=== PATIENT | male | born 1965 | race Caucasian/White ===

== ENCOUNTER 2017-02-03 15:54 | Observation (INO) | payer BC ==
[2017-02-03] VITALS (7 sets, daily range): BP systolic 115–167; BP diastolic 55–88; PULSE 58–79; RESP 15–18; TEMP 98.6; O2SAT 96–99
[~2017-02-03] VITALS: Ht 170.2 cm; Wt 97.0 kg
[~2017-02-03 15:54] MED LIST: LISI-357 PO; MECL25CH PO
--- NOTE | 2017-02-03 16:06 | PD ---
Physical Exam Date Seen by Provider: Feb 03, 2017 Time Seen by Provider: 16:05 Narrative 51 yr old male with HTN here with c/o chest pain for several weeks. He saw PCP on Monday and was referred to cardiology for stress test. However, pain continues and patient here for evaluation. He admits to nausea, vomiting and heartburn. Denies any diaphoresis. He is awaiting bed placement. Data Data Last Documented VS Vital Signs Date Time Temp Pulse Resp B/P (MAP) Pulse Ox O2 Delivery O2 Flow Rate FiO2 02/03/17 15:58 98.6 79 18 167/88 (114) 96 Room Air Orders [facility] Medical Record Reviewed: Yes Supervised Visit with VINNY: No Condition: Stable Radha Zamora Feb 03, 2017 16:06
--- NOTE | 2017-02-03 16:32 | RADRPT ---
EXAM DATE/TIME: 02/03/2017 16:33 [facility] COMPARISON: No previous studies available for comparison. INDICATIONS : Chest pain. MEDICAL HISTORY : None. SURGICAL HISTORY : None. ENCOUNTER: Initial ACUITY: 1 month PAIN SCORE: 6/10 LOCATION: chest FINDINGS: PA and lateral views of the chest demonstrate the lungs to be symmetrically aerated without evidence of mass, infiltrate or effusion. The cardiomediastinal contours are unremarkable. Osseous structure s are intact. CONCLUSION: No acute disease. Archie Norman MD FACR on February 03, 2017 at 16:31 Board Certified Radiologist. This report was verified electronically.
[2017-02-03] MEDS ORDERED: LISI-519 PO (17:14)
[2017-02-03] MEDS ORDERED: MONT10TA4 PO (17:14)
[2017-02-03] MEDS ORDERED: SODIUM CHLOR 0.9% 1000 ML INJ 1,000 ML IV SCH (17:37)
[2017-02-03] MEDS ORDERED: ONDANSETRON HCL 4 MG/2 ML VIAL IVP ONE (17:45)
--- NOTE | 2017-02-03 18:06 | PD ---
HPI Chief Complaint: Chest Pain Time Seen by Provider: 17:10 Travel History International Travel<30 days: No Contact w/Intl Traveler<30days: No Traveled to known affect area: No History of Present Illness HPI 51-year-old male that presents to the ED for evaluation of chest pain on and off for the past month as well as nausea and vomiting and some back pain. Per patient she's had this on and off for the past month. Per patient she's follow with his doctor and he recommended follow with public address system operator. He actually has an appointment on the 14 of this month but today she developed more nausea as well as vomiting as well as a chest pain and weakness and he states that he couldn't wait so he came here. Patient apparently had blood work done by his PCP earlier this week and was normal. He denies any other medical issues. He denies any surgeries. He does have a history of high blood pressure. He has a family history of heart disease and an old history of smoking having quit in July. He has an allergy to penicillin. No other medical issues. Per patient he gets very short of breath when he ambulates. He gets weak as well. States feeling dizzy. He states that the discomfort in the chest is not constant and it comes and goes and is sharp. Per patient he last for possibly a couple of seconds and goes away. She denies any diarrhea. No lower abdominal pain. PFSH Past Medical History Depression: Yes Heart Rhythm Problems: No Cardiac Catheterization: No Cardiovascular Problems: No High Cholesterol: No Congestive Heart Failure: No Cerebrovascular Accident: Yes (HTN) Diabetes: No Heparin Induced Thrombocytopen: No Hypertension: Yes Myocardial Infarction: No Past Surgical History Coronary Artery Bypass Graft: No Family History Family Myocardial Infarction: No Social History Alcohol Use: No Tobacco Use: Yes (1pack/day) Substance Use: No Allergies-Medications (Allergen,Severity, Reaction): Coded Allergies: penicillin G (Unverified Allergy, Severe, UNKNOWN REACTION, 02/03/17) Reported Meds & Prescriptions Reported Meds & Active Scripts Active Reported Montelukast (Montelukast Sodium) 10 Mg Tab 10 Mg PO HS Lisinopril 5 Mg Tab 5 Mg PO DAILY Review of Systems Except as stated in HPI: all other systems reviewed are Neg Physical Exam Narrative GENERAL: SKIN: Warm and dry. HEAD: Atraumatic. Normocephalic. EYES: Pupils equal and round. No scleral icterus. No injection or drainage. ENT: No nasal bleeding or discharge. Mucous membranes pink and moist. Tongue is midline. No uvula deviation. NECK: Trachea midline. No JVD. CARDIOVASCULAR: Regular rate and rhythm. No murmurs, S3, S4. RESPIRATORY: No accessory muscle use. Clear to auscultation. Breath sounds equal bilaterally. GASTROINTESTINAL: Abdomen soft, non-tender, nondistended. Hepatic and splenic margins not palpable. MUSCULOSKELETAL: Extremities without clubbing, cyanosis, or edema. No obvious deformities. Full range of motion of the upper and lower extremities bilaterally. 2+ pulses bilaterally. NEUROLOGICAL: Awake and alert. No obvious cranial nerve deficits. Motor grossly within normal limits. Five out of 5 muscle strength in the arms and legs. Normal speech. PSYCHIATRIC: Appropriate mood and affect; insight and judgment normal. Data Data Last Documented VS Vital Signs Date Time Temp Pulse Resp B/P (MAP) Pulse Ox O2 Delivery O2 Flow Rate FiO2 02/03/17 21:00 62 18 120/59 (79) 99 Room Air 02/03/17 15:58 98.6 Orders Orders Electrocardiogram (02/03/17 16:06) Basic Metabolic Panel (Bmp) (02/03/17 16:06) Ckmb (Isoenzyme) Profile (02/03/17 16:06) Complete Blood Count With Diff (02/03/17 16:06) Magnesium (Mg) (02/03/17 16:06) Prothrombin Time / Inr (Pt) (02/03/17 16:06) Act Partial Throm Time (Ptt) (02/03/17 16:06) Troponin I (02/03/17 16:06) Chest, Pa & Lat (02/03/17 16:06) Ondansetron Inj (Zofran Inj) (02/03/17 17:45) Sodium Chlor 0.9% 1000 Ml Inj (Ns 1000 M (02/03/17 17:37) Hepatic Functional Panel (02/03/17 18:00) Lipase (02/03/17 18:00) Pantoprazole Inj (Protonix Inj) (02/03/17 20:15) Famotidine Inj (Pepcid Inj) (02/03/17 20:15) CKMB (02/03/17 18:00) CKMB% (02/03/17 18:00) Us Abdomen Gallbladder (02/03/17 ) Activity Bed Rest With Brp (02/03/17 20:35) Vital Signs (Adult) Q4H (02/03/17 20:35) Cardiac Rhythm .As Directed (02/03/17 20:35) Notify Dr: Other .PRN (02/03/17 20:35) Notify Dr. Parameters (02/03/17 20:35) Resp Oxygen Nasal Cannula (02/03/17 ) Ckmb (Isoenzyme) Profile (02/03/17 21:00) Ckmb (Isoenzyme) Profile (02/04/17 00:00) Troponin I (02/03/17 21:00) Troponin I (02/04/17 00:00) Electrocardiogram (02/03/17 21:00) Electrocardiogram (02/04/17 00:00) ^ Obtain (02/03/17 20:35) Sodium Chloride 0.9% Flush (Ns Flush) (02/03/17 20:45) Sodium Chloride 0.9% Flush (Ns Flush) (02/03/17 21:00) Ondansetron Inj (Zofran Inj) (02/03/17 20:45) Famotidine (Pepcid) (02/03/17 21:00) Temp Recruiter / Telemetry JARROD.Q8H (02/03/17 20:35) CKMB (02/03/17 21:15) CKMB% (02/03/17 21:15) Admit Order (Ed Use Only) (02/03/17 22:08) Labs Laboratory Tests Test 02/03/17 18:00 02/03/17 21:15 White Blood Count 10.0 TH/MM3 Red Blood Count 4.72 MIL/MM3 Hemoglobin 14.9 GM/DL Hematocrit 42.0 % Mean Corpuscular Volume 89.0 FL Mean Corpuscular Hemoglobin 31.6 PG Mean Corpuscular Hemoglobin Concent 35.6 % Red Cell Distribution Width 12.6 % Platelet Count 310 TH/MM3 Mean Platelet Volume 9.3 FL Neutrophils (%) (Auto) 56.8 % Lymphocytes (%) (Auto) 29.7 % Monocytes (%) (Auto) 10.5 % Eosinophils (%) (Auto) 2.4 % Basophils (%) (Auto) 0.6 % Neutrophils # (Auto) 5.7 TH/MM3 Lymphocytes # (Auto) 3.0 TH/MM3 Monocytes # (Auto) 1.1 TH/MM3 Eosinophils # (Auto) 0.2 TH/MM3 Basophils # (Auto) 0.1 TH/MM3 CBC Comment DIFF FINAL Differential Comment Prothrombin Time 10.3 SEC Prothromb Time International Ratio 0.9 RATIO Activated Partial Thromboplast Time 31.7 SEC Blood Urea Nitrogen 16 MG/DL Creatinine 1.20 MG/DL Random Glucose 91 MG/DL Total Protein 8.3 GM/DL Albumin 4.1 GM/DL Calcium Level 8.6 MG/DL Magnesium Level 2.1 MG/DL Alkaline Phosphatase 122 U/L Aspartate Amino Transf (AST/SGOT) 38 U/L Alanine Aminotransferase (ALT/SGPT) 47 U/L Total Bilirubin 0.7 MG/DL Direct Bilirubin 0.1 MG/DL Sodium Level 134 MEQ/L Potassium Level 4.0 MEQ/L Chloride Level 99 MEQ/L Carbon Dioxide Level 28.0 MEQ/L Anion Gap 7 MEQ/L Estimat Glomerular Filtration Rate 64 ML/MIN Indirect Bilirubin 0.6 MG/DL Total Creatine Kinase 319 U/L 253 U/L Creatine Kinase MB 2.7 NG/ML Creatine Kinase MB % 0.8 % Troponin I LESS THAN 0.02 NG/ML LESS THAN 0.02 NG/ML Lipase 130 U/L MDM Medical Decision Making Medical Screen Exam Complete: Yes Emergency Medical Condition: Yes Medical Record Reviewed: Yes Interpretation(s) EKG shows sinus rhythm with no sign of acute ischemia or arrhythmia. Read by me and attending. Last Impressions Chest X-Ray 02/03/17 1606 Signed Impressions: Service Date/Time: Friday, February 03, 2017 16:33 - CONCLUSION: No acute disease. Archie Norman MD FACR CBC & BMP Diagram 02/03/17 18:00 Total Protein 8.3 H, Albumin 4.1, Calcium Level 8.6, Magnesium Level 2.1, Alkaline Phosphatase 122 H, Aspartate Amino Transf (AST/SGOT) 38 H, Alanine Aminotransferase (ALT/SGPT) 47, Total Bilirubin 0.7, Direct Bilirubin 0.1 troponin negative. CKMB negative lipase WNL US negative for acute disease Differential Diagnosis Chest pain versus a typical chest pain versus pancreatitis versus gallbladder disease versus ACS versus normal exam Narrative Course 51-year-old male that presents to the ED for evaluation of chest discomfort. Patient was properly examined and was found to have signs and symptoms consistent with appears to be chest discomfort. Labs and imaging ordered. Initial EKG did not show any sign of ST elevation. At this time patient will be given aspirin, fluids and Zofran. Patient is is symptomatic with no chest pain other than feeling "weak". Labs and imaging will be done. Labs and imaging showed slightly elevated LFTs. This discussed my attending who recommends a do ultrasound to make sure there is no sign of other this is causing the discomfort. Ultrasound was negative for acute disease. Patient was reassured. At this time I believe that the patient will benefit from having further evaluation for possible cardiac complaint. Patient agrees with admission for the chest pain center for likely stress test. Patient does have risk factors including age, being a male, or history of smoking and hypertension. Patient agrees with admission. Patient was admitted to chest pain center. My attending Dr. Silverio was made aware of all findings and agrees with plan. Diagnosis Primary Impression: Chest pain in adult Admitting Information Admitting Physician Requests: Efren Miller Feb 03, 2017 18:06
[2017-02-03 19:29] LABS: AUTOMATED NEUTROPHIL # 5.7 TH/MM3 (1.8-7.7); BASOPHIL # 0.1 TH/MM3 (0-0.2); BASOPHIL % 0.6 % (0.0-2.0); EOSINOPHIL # 0.2 TH/MM3 (0-0.4); EOSINOPHIL % 2.4 % (0.0-4.0); HEMO FLAGS DIFF FINAL; LYMPH % 29.7 % (9.0-44.0); MEAN CORPUSCULAR HEMOGLOBIN 31.6 PG (27.0-34.0); MEAN CORPUSCULAR HGB CONC 35.6 % (32.0-36.0); MONO % 10.5 % (0.0-8.0); NEUT % 56.8 % (16.0-70.0); PLATELET COUNT 310 TH/MM3 (150-450); RED BLOOD COUNT 4.72 MIL/MM3 (4.50-5.90); RED CELL DISTRIBUTION WIDTH 12.6 % (11.6-17.2)
[2017-02-03 19:44] LABS: ALT (GPT) 47 U/L (12-78)
[2017-02-03 19:46] LABS: ANION GAP 7 MEQ/L (5-15); AST (GOT) 38 U/L (15-37); BLOOD UREA NITROGEN 16 MG/DL (7-18); CHLORIDE 99 MEQ/L (98-107); GLOMERULAR FILTRATION RATE 64 ML/MIN (>89); MAGNESIUM 2.1 MG/DL (1.5-2.5); SODIUM (NA) 134 MEQ/L (136-145)
[2017-02-03 19:52] LABS: INTERNATIONAL NORMALIZED RATIO 0.9 RATIO; PROTHROMBIN TIME - PATIENT 10.3 SEC (9.8-11.6)
[2017-02-03 19:53] LABS: APTT (PATIENT) 31.7 SEC (24.3-30.1)
[2017-02-03] MEDS ORDERED: FAMOTIDINE 20 MG/2 ML VIAL IV PUSH ONE (20:15)
[2017-02-03] MEDS ORDERED: PANTOPRAZOLE SODIUM 40 MG VIAL IVP ONE (20:15)
[2017-02-03 20:16] LABS: ALKALINE PHOSPHATASE 122 U/L (45-117); CREATINE KINASE 319 U/L (39-308); INDIRECT BILIRUBIN 0.6 MG/DL (0.0-0.8); TOTAL BILIRUBIN ADULT 0.7 MG/DL (0.2-1.0)
[2017-02-03 20:28] LABS: CKMB 2.7 NG/ML (0.5-3.6)
[2017-02-03] MEDS ORDERED: ONDANSETRON HCL 4 MG/2 ML VIAL IV PRN (20:45)
[2017-02-03] MEDS ORDERED: SODIUM CHLORIDE 0.9% FLUSH 10 ML FLUSH IV FLUSH PRN (20:45)
[2017-02-03] MEDS: FAMOTIDINE 20 MG TAB PO SCH (21:00)
[2017-02-03 21:58] LABS: CREATINE KINASE 253 U/L (39-308)
--- NOTE | 2017-02-03 22:00 | RADRPT ---
EXAM DATE/TIME: 02/03/2017 20:38 [facility] COMPARISON: No previous studies available for comparison. INDICATIONS : Right upper quadrant pain. MEDICAL HISTORY : Hypertension. Depression. SURGICAL HISTORY : Knee surgery. ENCOUNTER: Initial ACUITY: 1 month PAIN SCORE: 2/10 LOCATION: Right upper quadrant MEASUREMENTS: LIVER: 16.9 cm length COMMON DUCT: 6 mm RIGHT KIDNEY: 13.5 x 6.9 x 5.6 cm FINDINGS: LIVER: Normal echotexture without focal lesion or ductal dilatation. COMMON DUCT: No intraluminal mass or stone visualized. GALLBLADDER: The gallbladder is contracted. Gallstones are not clearly seen. PANCREAS: The pancreas is obscured by overlying bowel gas. RIGHT KIDNEY: No evidence of hydronephrosis, stone, or mass. CONCLUSION: Contracted gallbladder. Gallbladder distention or a gallstone is not seen. Jarad Guo MD on February 03, 2017 at 21:51 Board Certified Radiologist. This report was verified electronically.
[2017-02-03 22:10] LABS: CKMB 2.3 NG/ML (0.5-3.6)
[2017-02-04 00:17] VITALS: BP 149/76; PULSE 55; RESP 18; TEMP 98.3; O2SAT 94
[2017-02-04] MEDS: SODIUM CHLORIDE 0.9% FLUSH 10 ML FLUSH IV FLUSH SCH ×2 (00:49→08:55)
[2017-02-04 02:04] LABS: CREATINE KINASE 239 U/L (39-308)
[2017-02-04 02:16] LABS: CKMB 2.4 NG/ML (0.5-3.6)
[2017-02-04 03:42] VITALS: BP 136/68; PULSE 49; RESP 18; TEMP 98.2; O2SAT 94
[2017-02-04 04:00] VITALS: PULSE 50
[2017-02-04 08:50] VITALS: PULSE 61
[2017-02-04] MEDS: FAMOTIDINE 20 MG TAB PO SCH (08:55)
[2017-02-04] MEDS ORDERED: LISINOPRIL 5 MG TAB PO SCH (09:00)
[2017-02-04 10:34] VITALS: BP 123/69; PULSE 52; RESP 16; TEMP 98; O2SAT 97
--- NOTE | 2017-02-04 11:54 | HHI.DCPOC ---
Discharge Care Plan Diagnosis: (1) Chest pain in adult Goals to Promote Your Health * To prevent worsening of your condition and complications * To maintain your health at the optimal level Directions to Meet Your Goals Take your medications as prescribed Follow your dietary instruction Follow activity as directed Keep your appointments as scheduled Take your immunizations and boosters as scheduled If your symptoms worsen call your PCP, if no PCP go to Urgent Care Center or Emergency Room Smoking is Dangerous to Your Health. Avoid second hand smoke Call the 24-hour hour crisis hotline for domestic abuse at [facility] Feb 04, 2017 11:54
--- NOTE | 2017-02-04 13:01 | EKG ---
Date Performed: 02/04/2017 Time Performed: 01:29:29 PTAGE: 51 years EKG: SINUS BRADYCARDIA BORDERLINE ECG PREVIOUS TRACING : 02/03/2017 21.26 DOCTOR: Richard Little Interpretating Date/Time 02/04/2017 13:00:17
--- NOTE | 2017-02-04 13:04 | EKG ---
Date Performed: 02/03/2017 Time Performed: 21:26:12 PTAGE: 51 years EKG: Sinus rhythm NORMAL ECG PREVIOUS TRACING : 02/03/2017 17.16 DOCTOR: Richard Little Interpretating Date/Time 02/04/2017 13:02:48
--- NOTE | 2017-02-04 13:05 | EKG ---
Date Performed: 02/03/2017 Time Performed: 17:16:34 PTAGE: 51 years EKG: Sinus rhythm INCOMPLETE RIGHT BUNDLE BRANCH BLOCK BORDERLINE ECG PREVIOUS TRACING : 03/29/2014 17.14 DOCTOR: Richard Little Interpretating Date/Time 02/04/2017 13:04:07
--- NOTE | 2017-02-04 14:00 | MH ---
cc: ELENA REYES MD DATE OF ADMISSION: 02/03/2017 CHIEF COMPLAINT: Chest pain over several weeks duration. He was seen by Dr. Alston who recommended a stress test and referred him to Dr. Munoz. HISTORY OF PRESENT ILLNESS: A 51-year-old gentleman who began to experience very atypical chest pain over the last couple of months. These episodes were described as a sharp quick pain varying from the sternum to the left posterior back. The pain lasts for a matter of just a few seconds and immediately goes away. The severity is 1/10. There is no radiation. The duration is a matter of seconds. There are no associated symptoms. No precipitating factors. No relieving factors. The patient presented to Dr. Alston for evaluation and Dr. Alston evaluated and recommended a stress test. This precipitated considerable anxiety on the patient's part resulting in coming to the emergency room because he did not want to wait to be seen by a college president. He is a very anxious man. He quit smoking after a 30 pack/year history in July of this year. Since then, he has gained weight. He has noticed increasing shortness of breath, increasing fatigue. 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 He notes that by noon he is beginning to be fatigued and sometimes gets dizzy, often gets nauseated and yesterday had some vomiting. He has been bothered by heartburn over the last several months. This heartburn is relieved by taking Pepcid or an antacid. He does have a history of a GI bleed at age 20. PAST MEDICAL HISTORY: 1. Hypertension, which has been noted over the past year. 2. Obesity, which has increased since he quit smoking. Otherwise largely unremarkable. He did have a stress test in 09/02/09 during which time he exercised for 11 minutes and was negative. FAMILY HISTORY: Father and mother both living. The father is 80 with some sort of arrhythmia. The mother is 78 with hypertension. Both are well. He has two siblings. No medical history as far as he knows. SOCIAL HISTORY: He denies alcohol or illicit drugs. He was a pack-a-day smoker for thirty years but stopped in July. MEDICATIONS: 1. He takes Singulair and is followed by Dr. Tobias for allergies to pollens. 2. Lisinopril for his blood pressure. ALLERGIES: 1. PENICILLIN. 2. SOME POLLENS. REVIEW OF SYSTEMS: In general, other than weight gain, fatigue, and present symptoms, his review of systems is unremarkable. DERMATOLOGIC: He bites his fingernails rather severely. HEAD, EYES, EARS, NOSE, THROAT: He has some irritations of his eyes recently. CHEST: Shortness of breath. Allergies (followed by Dr. Tobias). CARDIOVASCULAR: See present illness. GASTROINTESTINAL: See present illness. GENITOURINARY: Unremarkable. NEUROLOGIC: Unremarkable. MUSCULOSKELETAL: Some discomfort in his back, shoulders and neck. PHYSICAL EXAMINATION: GENERAL: A well-developed, well-nourished man somewhat obese at about 218 pounds and 5 feet 7. SKIN: Warm and dry. Unremarkable other than the fact that his fingernails are bitten back. HEAD, EYES, EARS, NOSE, THROAT: Head is Normocephalic and atraumatic. Pupils equal, round and reactive to light. Extraocular muscles intact. The sclerae are clear. Funduscopic deferred. Nose - nares are clear. No perforated septum. No obstruction. No lesions. Mouth - The mucous membranes are moist. Color normal. Tongue unremarkable. No lesions. Palpation reveals no masses. NECK: The neck is supple. No jugular venous distention, masses, nodes or bruits. CHEST: Clear to auscultation with no wheezes, rales or rhonchi. CARDIOVASCULAR: The PMI is not displaced. There is a regular rhythm. No murmurs, rubs or gallops are noted. (The patient has a history of murmur as a child). ABDOMEN: Abdomen soft and nontender. No guarding or rebound. Obese. No masses noted. EXTREMITIES: No cyanosis, clubbing or edema. Homans negative. No tenderness. NEUROLOGIC: Cranial nerves are intact by observation. Motor movement and strength are equal upper and lower extremities. LABORATORY DATA: Lab testing reveals negative enzymes x3. EKGS: Negative EKG x3 but with right bundle-branch block pattern. IMAGING STUDIES: Ultrasound of the gallbladder was previously done and is unremarkable. PROBLEMS: 1. Chest pain -- atypical. 2. Anxiety. 3. Hypertension. 4. Gastric reflux disease. 5. ALLERGY TO POLLEN MOLD AND PENICILLIN. 6. History of tobacco abuse, now stopped. ASSESSMENT: Current chest pain is very atypical for ischemic heart disease. Most of his current symptoms are probably related to recent weight gain and poor conditioning, and probably has gastroesophageal reflux disease (GERD), which needs further evaluation. PLAN: The plan is to carry out an exercise stress test. If this is unremarkable, he will be discharged back to Dr. Alston's follow up with recommendation for GI evaluation. MD JOEL North/JANETH /10:30 AM /1:39 PM
--- NOTE | 2017-02-04 15:27 | TR ---
Date Performed: 02/04/2017 Time Performed: 11:25:57 DOCTOR: Richard Little DRUG LIST: CLINICAL HISTORY: REASON FOR TEST: Chest pain REASON FOR ENDING: PATIENT EXERCISED CHARLY PROTOCOL FOR Total Exercise Time=10:06 Maximum HY=686 % Max HR Achieved=86.0% Maximum UA=759/50 Total Exercise Time=10:06. EXERCISE TOLERANCE GOOD. BP RES PONSE NORMAL. NO CHEST PAIN/DYSPNEA. TEST ENDED SECONDARY TO MEETING GOAL/LEG FATIGUE. AT PEAK EXERCI SE, RAPIDLY UPSLOPING ST-T SEGMENTS WITHOUT SUGGESTION OF ISCHEMIA. RECOVERY QUICK AND UNREMARKABLE. OBSERVATION: CONCLUSION: Patient exercised using the Charly protocol. No electrocardiographic changes were see n to suggest ischemia. Hemodynamic response to exercise was normal. No significant arrhythmia was pre sent. COMMENTS:
[2017-02-04] MEDS ORDERED: MONTELUKAST SODIUM 10 MG TAB PO SCH (21:00)
== END 2017-02-04 16:49 | disposition home or self-care (01) ==
LOC: NEPC 15:54 → NEDA 22:10 → NEPGCP 02-04 00:02
PROVIDERS: ADMIT Internal Medicine Interventional Cardiology; ATTEND Internal Medicine Interventional Cardiology
DX: R07.89 Other chest pain (principal); R94.31 Abnormal electrocardiogram [ECG] [EKG]; I10 Essential (primary) hypertension; F41.9 Anxiety disorder, unspecified; Z72.0 Tobacco use; Z88.0 Allergy status to penicillin; Z82.49 Family history of ischemic heart disease and other diseases of the circulatory system
CPT/HCPCS: 71020; 76705; 80048; 80076; 82550; 82552; 83690; 83735; 84484; 85025; 85610; 85730; 93005; 93017; 96361; 96374; 96375; 99285; C9113; G0378; J2405; J7030